=== PATIENT | male | born 1935 | race African-American/Black ===

== ENCOUNTER 2016-09-15 21:32 | Inpatient (IN) | payer OTHER ==
--- NOTE | ~2016-09-15 | DS ---
Discharge Summary [facility] [address] [place]. [address] NAME: JEFF ALVAREZ : 33 STATUS : DIS IN PAT#: [id number] AGE: 81 ADM/REG DATE : 09/16/16 MR#: [id number] REPORT SERV DATE: 09/24/16 DICTATED BY: ALDO RENDON DATE: 09/23/16 REPORT STATUS : Draft TRANSCRIBED BY: LYNNETTE DATE: 09/23/16 ADMISSION DATE: 09/16/2016 DISCHARGE DATE: 09/23/2016 Please see yesterday's full discharge summary. The patient was not able to go on the because it took time for insurance to approve his home IV antibiotic and home healthcare to be arranged. PICC line has been placed in his right upper extremity. He is still on a cefepime. Home care for the cefepime is now set up as 1 g IV every six hours through 09/29/2016 with a PICC line to be removed the following day on 09/30/2016. He is to follow up with Dr. Guillen and his office staff and to get a PET-CT, also Dr. Paez of Medical Oncology who wants to see the patient on Tuesday or of the week following discharge and also to follow up with Radiation Oncology in the week prior to discharge. The patient is still alert, oriented, and ambulatory. States he is feeling remarkably well. He is in good spirits. We will add one discharge diagnosis and that is moderate protein-calorie malnutrition, present on admission. I spent 32 minutes today with the patient and with discharge planning. DICTATED BY: Alisia Baumann/LYNNETTE Aldo Rendon M.D. / [id number] CC: Alisia Hopkins DAVID K Edward Arrowsmith, M.D. Donald Hetzel, M.D. Nathan Mull IV, M.D.
--- NOTE | ~2016-09-15 | HP ---
History And Physical [address] [place]. [address] NAME: JEFF ALVAREZ : 33 STATUS : ADM IN PAT#: [id number] AGE: 81 ADM/REG DATE : 09/16/16 MR#: [id number] REPORT SERV DATE: 09/16/16 DICTATED BY: RUIZ GRIMES DATE: 09/16/16 REPORT STATUS : Draft TRANSCRIBED BY: MODKeegan DATE: 09/16/16 DATE OF ADMISSION: 09/16/2016 CHIEF COMPLAINT: An 81-year-old male, presenting with increasing shortness of breath and evidence of partial left lung collapse and possible pneumonia versus lung mass. HISTORY OF PRESENT ILLNESS: The patient's history was obtained through careful interview with the patient and daughter coupled with review of [facility] medical records. The patient states that for several days he has began to have increasing shortness of breath characterized by dyspnea on exertion, stating "my breathing has been impaired". For about three weeks he has had a cough that has been increasingly productive of a thick mucus. Finally today the patient was so short of breath that his daughter brought him to an urgent care clinic, when they found that his O2 saturation was quite low they sent him in an ambulance here to our hospital. No chest pain. No abdominal pain. No headache. No back pain. No nausea or vomiting. The patient has had a very poor appetite recently. He has lost weight going from 184 pounds to 170 pounds, but about a month ago he had been suffering from some diarrhea and had a colonoscopy under the care of Dr. Barraza and had a new diagnosis of ulcerative colitis, but he has been started on mesalamine with resolution of his diarrhea and feeling better. REVIEW OF SYSTEMS: Otherwise, a 14-point review of systems was obtained, was negative. PAST MEDICAL HISTORY: 1. Ulcerative colitis just diagnosed in July 2016, under the care of Dr. Barraza. 2. Colon polyps. 3. Chronic back pain. 4. Gastroesophageal reflux disorder. 5. Benign prostatic hypertrophy. 6. Bacteroides bacteremia in November 2013. PAST SURGICAL HISTORY: 1. Cholecystectomy. 2. Hernia repair. ALLERGIES: TO PENICILLIN. SOCIAL HISTORY: Quit smoking about three years ago. No alcohol abuse. Became a in 2000, now lives with his daughter. 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 History And Physical [place] [address] [place]. [address] NAME: JEFF ALVAREZ : 33 STATUS : ADM IN PAT#: [id number] AGE: 81 ADM/REG DATE : 09/16/16 MR#: [id number] REPORT SERV DATE: 09/16/16 DICTATED BY: RUIZ GRIMES DATE: 09/16/16 REPORT STATUS : Draft TRANSCRIBED BY: LYNNETTE DATE: 09/16/16 FAMILY HISTORY: Brother with diabetes, last year. Father at a young age in a motor vehicle accident. Mother of "old age." CURRENT MEDICATIONS: 1. Entocort 9 mg p.o. daily. 2. BuSpar three times a day. 3. Dulcolax daily. 4. Pepcid 20 mg p.o. daily. 5. Lasix 20 mg daily. 6. Hydrocodone. 7. Claritin 10 mg p.o. daily. 8. Mesalamine 1.2 g p.o. t.i.d. 9. Prilosec 20 mg p.o. daily. 10.Simethicone. 11.Flomax 0.4 mg p.o. daily. PHYSICAL EXAMINATION: VITAL SIGNS: Temperature 99.3, pulse 103, blood pressure 110/60, respiratory rate 22, and O2 saturation 82% on room air, 90% on 3 L nasal cannula. GENERAL: An ill-appearing male, in evidence of distress secondary to shortness of breath and cough. HEENT: Pupils equal, round, and reactive to light. No conjunctival pallor. No scleral icterus. Nares are patent. Oropharynx is clear of obstruction. Moist mucous membranes. NECK: Trachea midline. No thyromegaly. LYMPH: No cervical lymphadenopathy. No supraclavicular lymphadenopathy. RESPIRATORY: The patient has almost absent breath sounds in the left lung throughout, the right lung showed scattered expiratory wheezes and some scattered rhonchi as well. No rales. Throughout the left lung I do not appreciate any particular egophony though. The patient has a labored respiratory effort. CARDIOVASCULAR: Tachycardic. Regular rhythm. No murmurs, rubs, or gallops. No current extremity edema is appreciated. ABDOMEN: Soft, nontender, and nondistended. Normal bowel sounds auscultated throughout. No hepatosplenomegaly. DERMATOLOGICAL: Warm and dry extremities. No pallor. No cyanosis. PSYCHIATRIC: Normal affect. Good mood. Alert and oriented x3. LABORATORY DATA: White blood cell count 10.6, hemoglobin 14, hematocrit 41, and platelets 272. Sodium 135, potassium 3.4, chloride 94, bicarb 35, BUN 16, creatinine 1.12, and glucose 98. Brain natriuretic peptide 8. Troponin negative. INR 1.4. STUDIES: 1. Chest x-ray by my own evaluation shows shift of the lungs and the mediastinum toward the left side where the patient has what appears to be a total collapse of the left lung. History And Physical [address] [place]. [address] NAME: JEFF ALVAREZ : 33 STATUS : ADM IN [facility]#: [id number] AGE: 81 ADM/REG DATE : 09/16/16 MR#: [id number] REPORT SERV DATE: 09/16/16 DICTATED BY: RUIZ GRIMES DATE: 09/16/16 REPORT STATUS : Draft TRANSCRIBED BY: LYNNETTE DATE: 09/16/[address] of the chest shows diffuse pneumonia likely left lung mass with mucous plugging and left upper lung collapse, also was noted to be a thoracic aortic aneurysm 4.4 cm. ASSESSMENT AND PLAN: 1. Hypoxic respiratory failure. Provide supportive care. 2. Left lung collapse. Consult Dr. Arteaga, Pulmonary, for bronchoscopy. 3. Left lung mass. 4. Suspected postobstructive pneumonia. Check blood cultures. Place on empiric IV antibiotics. 5. Chronic obstructive pulmonary disease exacerbation. Place on IV Solu-Medrol, Duo nebulizers. 6. Ulcerative colitis, seems to be under good control on mesalamine. KPL/MODL Ruiz Grimes M.D. / [id number] CC: MD Ajit Rodriguez M.D.
--- NOTE | ~2016-09-15 | CN ---
Consultation Report [facility] [address] [place]. [address] NAME: JEFF BRASHER : 33 STATUS : ADM IN PAT#: [id number] AGE: 81 ADM/REG DATE : 09/16/16 MR#: [id number] REPORT SERV DATE: 09/16/16 DICTATED BY: MERY GUILLEN IV DATE: 09/16/16 REPORT STATUS : Draft TRANSCRIBED BY: LYNNETTE DATE: 09/16/16 PULMONARY CONSULTATION DATE OF CONSULTATION: 09/16/2016 REASON FOR REQUEST: Abnormal chest CT scan. HISTORY OF PRESENT ILLNESS: History was obtained from the records and from the patient. Mr. Brasher is an 81-year-old male with a history of recently diagnosed ulcerative colitis, GERD, past tobacco, and past Bacteroides sepsis secondary to cholangitis, who was admitted with cough with sputum production, shortness of breath, and an abnormal chest CT scan. The patient was in his normal state of health from a respiratory standpoint until several weeks ago when he developed a dry, nonproductive cough. Over the last three to four days, he has noted increased shortness of breath with wheezing and a cough productive of grayish phlegm. He denied any fevers, chills, sweats, or hemoptysis. He has limited exercise tolerance at baseline secondary to sciatica more than shortness of breath. He has not previously been on bronchodilator medication nor is he on supplemental oxygen. He denies new headaches, focal neurologic deficits, or bone pain. Because of his worsening symptoms, he was brought to the emergency room where a chest x-ray demonstrated hazy density throughout the left hemithorax with a nodular density at the right base with a CT scan confirming left upper lobe collapse with infiltrate in the left lower lobe, airway narrowing, and nodular densities in the right lung field with bronchiectasis. The patient has no recent radiographic studies for comparison. PULMONARY HISTORY: Remarkable for no history of childhood asthma or known adult obstructive lung disease. He has had pneumonia in the past. He is a 40-xnbi-udlg smoker, having quit in 2013. 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 He refuses immunizations. PAST MEDICAL HISTORY: Remarkable for, 1. Ulcerative colitis. 2. Reflux disease. 3. Past tobacco use. 4. Previous bacteremia from cholangitis. SURGERIES: The patient had a cholecystectomy and had a right inguinal hernia repair. ALLERGIES: HE DEVELOPS A RASH FROM PENICILLIN. CURRENT MEDICATIONS: The patient is on Claritin 10 mg daily, DuoNeb every four hours, Entocort EC 9 mg daily, Flomax 0.4 mg after breakfast, Levaquin 750 mg daily, Flagyl 500 mg q.8 hours, Lasix 20 mg daily, Lialda 1.2 g with meals, Protonix 40 mg daily, and Solu-Medrol 20 mg q.12 hours. SOCIAL HISTORY: Remarkable for the tobacco use as above. The patient denies alcohol or Consultation Report [place] [id number] [facility] [place]. [address] NAME: JEFF BRASHER : 33 STATUS : ADM IN [facility]#: [id number] AGE: 81 ADM/REG DATE : 09/16/16 MR#: [id number] REPORT SERV DATE: 09/16/16 DICTATED BY: MERY GUILLEN IV DATE: 09/16/16 REPORT STATUS : Draft TRANSCRIBED BY: LYNNETTE DATE: 09/16/16 illicit drug use. He is . He has seven children. He lives with his daughter. FAMILY HISTORY: Remarkable for brother with diabetes mellitus. Father of a motor vehicle accident. Mother who of an old age. There are no other known medical problems in family members. REVIEW OF SYSTEMS: 14-systems were reviewed and pertinent positives as noted above. PHYSICAL EXAMINATION: GENERAL: This is a well-developed, male, in no acute distress. He is alert, awake, and oriented. VITAL SIGNS: Temperature 97.6, pulse is 80, respiratory rate is 18, saturations are 96% on 4 L via nasal cannula, and blood pressure is 124/62. HEENT: Normocephalic, atraumatic. Extraocular movements are intact. Pupils are reactive to light. Sclerae and conjunctivae are normal. He has a nasal cannula in place. He has upper plate and partial lower with two remnant teeth with significant gingival disease. NECK: Without any palpable lymphadenopathy or thyromegaly. CHEST: The patient has some inspiratory crackles and rhonchi at the right base. He has wheeze throughout the left hemithorax with a prolonged expiratory phase and decreased breath sounds. CARDIOVASCULAR: Jugular venous pulsations appear to be approximately 7 cm. He has 2+ carotid upstrokes with no obvious bruit. He has a regular S1 and S2 with no clear murmur or S3. Peripheral pulses are diminished. ABDOMEN: Scaphoid, soft, nontender. There are hypoactive bowel sounds. There is no palpable hepatosplenomegaly or mass. Surgical scar is noted. EXTREMITIES: Demonstrate some ankle edema. Pneumatic compression stockings are in place. There is no cyanosis, clubbing, or palpable cords. NEUROLOGIC: The patient is able to move all extremities. Strength is 5/5 and sensation is intact to light touch. IMAGING: Chest CT scan is as noted above with right lower lobe bronchiectatic changes with several nodular densities that are unclear if they are inflammatory or malignant. There is a slightly prominent 4R, though an enlarged 4L lymph node. There is some aneurysmal dilatation of the ascending thoracic aorta. The main stem pulmonary artery is enlarged. There is volume loss and airway narrowing to the left upper lobe as well as to the left lower lobe with a small left pleural effusion. There is nodular infiltrate in the remnant left lower lobe, more consistent with an inflammatory process and lymphangitic tumor spread. LABORATORY DATE: CBC: Hemoglobin 11.5, hematocrit 35.1, platelet count was 203,000, white blood cell count is 8.5, INR is 1.6. Sodium is 135, potassium 3.1, chloride 97, bicarb 31, BUN 14, creatinine 0.96, glucose of 98, albumin is only 1.8, globulin was elevated at 4.8. Liver panel is otherwise unremarkable. TSH is 1.18. Troponin is less than 0.02. Procalcitonin level was 0.16. Consultation Report [address] [place]. [address] NAME: JEFF BRASHER : 33 STATUS : ADM IN [facility]#: [id number] AGE: 81 ADM/REG DATE : 09/16/16 MR#: [id number] REPORT SERV DATE: 09/16/16 DICTATED BY: MEYR GUILLEN IV DATE: 09/16/16 REPORT STATUS : Draft TRANSCRIBED BY: LYNNETTE DATE: 09/16/16 ASSESSMENT AND PLAN: 1. Respiratory. The patient has a wheezing, which may be from airway narrowing or obstructive lung disease. Solu-Medrol will be increased to 40 mg q.12 hours, Dulera will be started two puffs twice a day, Spiriva one capsule daily, DuoNeb will be discontinued and he will be given albuterol with EzPAP q.4 hours while awake and q.2 hours as needed. The patient has bronchiectasis in the right lower lobe. He will be given an Acapella valve. Oxygen will be titrated to maintain saturations in the 90% to 94% range. Nodules may be inflammatory or malignant and will need to be followed as part of the evaluation. 2. Infectious disease. With the bronchiectasis, we will change to cefepime and Flagyl. Sputum will be sent for Gram stain and culture. Urine antigen will be sent for Legionella as well as for Pneumococcus. The patient refuses immunizations. 3. Cardiovascular. The patient has large pulmonary arteries, so we will check an echocardiogram for pulmonary pressures particularly at the time of considering doing transbronchial lung biopsies to the left lower lobe. 4. Hematologic. Lovenox subcu for deep vein thrombosis prophylaxis and vitamin K for the elevated INR, which will be repeated tomorrow. 5. Renal. We will replace the patient's potassium and magnesium. Phosphate level will be obtained and replete electrolytes in the morning. 6. Gastrointestinal. Head of bed at 30 to 45 degrees. We will continue ulcerative colitis medications. Thank you for consulting us. The patient will undergo bronchoscopy tomorrow. MARCELA/LYNNETTE Mery Guillen IV, M.D. / [id number] CC: MD Ajit Rodriguez M.D.
--- NOTE | ~2016-09-15 | IDS ---
Interim Discharge Summary [facility] [address] [place]. [address] NAME: JEFF BRASHER : 33 STATUS : ADM IN PAT#: [id number] AGE: 81 ADM/REG DATE : 09/16/16 MR#: [id number] REPORT SERV DATE: 09/21/16 DICTATED BY: HARINI NERI DATE: 09/21/16 REPORT STATUS : Draft TRANSCRIBED BY: LYNNETTE DATE: 09/21/16 ADMISSION DATE: 09/16/2016 DISCHARGE DATE: DATE OF INTERIM SUMMARY: 09/20/2016. INTERIM DIAGNOSES: 1. Acute hypoxic respiratory failure, present on arrival. 2. Left lung collapse, present on arrival. 3. Bronchiectasis. 4. Chronic obstructive pulmonary disease mild exacerbation, present on arrival. 5. Systemic inflammatory response syndrome. 6. Hypoalbuminemia. 7. Mild creatinine elevation. CONSULTATIONS: Dr. Guillen. PROCEDURES PERFORMED: Bronchoscopy path still currently pending. Cultures pending. The patient additionally had PET scan approximately one week with close followup with Pulmonology at discharge, ambulating trial currently room air at rest and exercise 90 to 95 on room air. HOSPITAL COURSE: Please see H and P for complete details. HISTORY OF PRESENT ILLNESS: Briefly, Mr. Brasher is an 81-year-old male with past medical history of COPD and tobacco use currently on smokeless tobacco, who presents after having progressive shortness of breath, dyspnea on exertion and found to have left lung collapse, prompting pulmonary evaluation and subsequent bronchoscopy. The bronchoscopy was quite extensive from detailed notes postoperatively with cultures obtained. The patient has been placed on cefepime, Flagyl, and steroid taper due to COPD. IV antibiotics to continue minimum 7 days. Currently, the patient is on day 5 of 7 at the time of this interim summary; however, the patient should be able to be discharged once culture and sensitivities have been known per Dr. Guillen's request on Pulmonary. Medications have been continued to be optimized. The patient has been able to be weaned off oxygen, ambulatory, speaking full sentences with increased exercise tolerance. The patient again will need followup with path and cultures. We will determine dispo potential including sensitivities will likely be followed up as an outpatient if no return prior to discharge. The patient's SIRS symptoms have notably improved. Creatinine elevation has remained fairly stable. All questions answered with the patient at bedside. Case was discussed with Pulmonary team. KATHERINE/LYNNETTE Interim Discharge Summary [address] [place]. [address] NAME: JEFF BRASHER : 33 STATUS : ADM IN PAT#: [id number] AGE: 81 ADM/REG DATE : 09/16/16 MR#: [id number] REPORT SERV DATE: 09/21/16 DICTATED BY: HARINI NERI DATE: 09/21/16 REPORT STATUS : Draft TRANSCRIBED BY: LYNNETTE DATE: 09/21/16 Harini Neri MD / [id number] CC: MD Ajit Rodriguez M.D.
--- NOTE | ~2016-09-15 | DS ---
Discharge Summary [facility] [address] [facility] [place]. [address] NAME: JEFF ALVAREZ : 33 STATUS : ADM IN PAT#: [id number] AGE: 81 ADM/REG DATE : 09/16/16 MR#: [id number] REPORT SERV DATE: 09/23/16 DICTATED BY: ALDO RENDON DATE: 09/22/16 REPORT STATUS : Draft TRANSCRIBED BY: MODKeegan DATE: 09/22/16 ADMISSION DATE: 09/16/2016 DISCHARGE DATE: 09/22/2016 CONSULTANTS: Jaison Guillen, Pulmonary Critical Care; Dr. Pablo Paez, Hematology/Oncology. DISCHARGE DIAGNOSES: 1. Newly diagnosed carcinosarcoma, poorly differentiated, left upper lobe lung. 2. Pseudomonas aeruginosa, postobstructive pneumonia. 3. Chronic obstructive pulmonary disease. 4. Recently diagnosed ulcerative colitis. 5. Status post acute kidney injury, transient, resolved. 6. Status post systemic inflammatory response syndrome. 7. History of sciatica. 8. Thoracic aortic aneurysm, 4.4 cm. HISTORY: This patient presented to [facility] emergency [facility]. He had been having progressive shortness of breath, dyspnea on exertion, cough for three weeks with productive sputum, went to an Urgent Care. He reportedly had a low O2 saturation, was sent to our emergency room. He was found to have atelectasis that was quite severe of his left upper lung. Also thoracic aortic aneurysm of 4.4 cm fusiform. The patient was referred to our inpatient team. He was seen by Pulmonary, Dr. Guillen. Dr. Guillen performed bronchoscopy on the patient, found a tumor plug extending from the anterior superior portion of the left upper lobe with complete obstruction of the left upper lobe bronchus with lizz pus draining. There was successful removal of the majority of the tumor plug. Cultures were submitted as well as cytology. The cytology showed the carcinosarcoma. The cultures revealed Pseudomonas aeruginosa that was moderately resistant in that it was only sensitive to cefepime, aztreonam, Zosyn, and amikacin. The patient received intravenous cefepime seven days worth here in the hospital and will complete seven more days after discharge. After therapy, the patient had significant improvement of his aeration of his left upper lung. His cough, shortness of breath, and chest discomfort resolved. CT scan of abdomen and pelvis, looking for evidence of metastasis showed irregular nodular opacity in the basilar right lower lobe, 1.6 x 1.2 mm. No other adenopathy or metastatic disease. There was some enlargement of the prostate gland. MRI of the brain revealed evidence of chronic appearing sphenoid sinusitis, otherwise, no acute abnormalities. He was seen by Dr. Paez, who planned to see him after full staging was completed. Dr. Guillen of Pulmonary plans to see the patient back with a PET-CAT scan. He wants the patient to see Yudelka Weir at his office 10/01/2016 with spirometry and DLCO. The patient is ambulatory, states he is not short of breath. His O2 saturations are normal on room air. He is afebrile. He feels good. His recent ulcerative colitis is well Discharge Summary [address] [address] NAME: JEFF ALVAREZ : 33 STATUS : ADM IN [facility]#: [id number] AGE: 81 ADM/REG DATE : 09/16/16 MR#: [id number] REPORT SERV DATE: 09/23/16 DICTATED BY: ALDO RENDON DATE: 09/22/16 REPORT STATUS : Draft TRANSCRIBED BY: LYNNETTE DATE: 09/22/16 controlled by his oral medicines. No diarrhea. No abdominal pain. DISCHARGE MEDICATIONS: Budesonide 9 mg p.o. daily, Maxipime 1 g IV q.6 hours through 09/29/2016, Lasix 20 mg daily, Claritin 10 mg daily, mesalamine 1.2 g t.i.d., Prilosec 20 mg daily, Flomax 0.4 mg daily, Tylenol 650 q.6 hours p.r.n. pain, BuSpar 7.5 mg t.i.d. scheduled, Colace 100 mg daily p.r.n., [place] 10/325 half tablet daily p.r.n. pain which is a chronic medicine for him, nicotine patch 14 mg size with encouragement to stop all tobacco, simethicone gas tablets p.r.n., albuterol nebulized q.4 hours p.r.n. shortness of breath, and Anoro Ellipta one puff daily, and albuterol HFA two puffs q.4 hours p.r.n. shortness of breath. He is to follow up with Dr. Guillen and his office staff as described above, also with Dr. Paez of Oncology and also with his PCP, Dr. Ajit Richards, and his GI, if needed, Dr. Barraza, in the future. If his medical insurance will not pay for home IV antibiotics with his PICC line and home nursing, then we will have set up for rehab to do that same thing. I spent 58 minutes today with the patient and with discharge plan. DICTATED BY: Alisia Baumann/LYNNETTE Aldo Rendon M.D. / [id number] CC: Alisia Hopkins M.D. Edward Arrowsmith, M.D. Donald Hetzel, M.D. Nathan Mull IV, M.D.
--- NOTE | ~2016-09-15 | OP ---
Record Of Operation [facility] [address] [place]. [address] NAME: JEFF ALVAREZ : 31 STATUS : ADM IN PAT#: [id number] AGE: 81 ADM/REG DATE : 09/16/16 MR#: [id number] REPORT SERV DATE: 09/17/16 DICTATED BY: MERY GUILLEN IV DATE: 09/17/16 REPORT STATUS : Draft TRANSCRIBED BY: LYNNETTE DATE: 09/17/16 DATE OF PROCEDURE: 09/17/2016 PREOPERATIVE DIAGNOSIS: Suspected tumor plug in the left upper lobe. POSTOPERATIVE DIAGNOSES: Tumor plug likely extending from the spur and from anterior segment of the left upper lobe with complete obstruction of the left upper lobe bronchus with tumor plug overlying and obstructing the left lower lobe bronchus with lizz pus. There was successful removal of the majority of the tumor plug exposing all airways except for the anterior segment of the left upper lobe. PROCEDURE: Bronchoscopy with the use of Caprice catheter for assist with exposure, cautery snare as well as cutting snares, biopsy forceps, and APC for cautery. EBUS was performed with sampling of the 4 L and 11 L lymph nodes. BALs were additionally performed in both the right lower lobe, left lower lobe, and wash of the left upper lobe was sent for cytology. CONTRAINDICATIONS: None. CONSENT: The risks, benefits, alternative of the treatments and evaluations were discussed with the patient and his . Possible complications were reviewed to include, but not limited to, bleeding, infection, low oxygen level, air leak around the lung, and even potentially . The patient agreed to procedure with the consent signed and witnessed on the front of the chart. PREOPERATIVE LABS: INR was 1.4 and platelet count was 217,000. METHOD: The patient was taken to the bronchoscopy suite of [facility] and prepared in the usual manner. Anesthesiology was consulted to provide airway management as well as sedation. This was provided via an LMA airway. Once the airway was secured and the patient was sedated, the bronchoscope was advanced through the LMA without difficulty. The vocal cords seemed to move appropriately with respiratory effort. Trachea was sharp and the vikash was narrowed. On the right, there were milky thick secretions in the airways particularly in the right lower lobe that were grossly removed with suction for examination. Of note, a total of 18 mL of 2% lidocaine solution was used throughout the procedure to anesthetize the vocal cords as well as the airways. The airways are slightly ectatic with some bronchial pits. There was the milky somewhat purulent looking secretions on the right which were removed with suction. There was anatomic variant of the apical segment coming off the anterior segment of the right upper lobe. Otherwise anatomy was normal with all airways patent out beyond the fourth generation bronchi. On the left, there was a necrotic tumor plug completely obstructing the distal left mainstem bronchus though the scope could be passed around the tumor plug into the left lower lobe bronchus. This had lizz pus in the airways. A BAL was performed in the left lower lobe and sent for cultures as well as cytology. A BAL was then performed in the right lower lobe bronchus sent for cytology as well as for cultures. At this point, electrocautery snare was used to remove the vast majority of the tissue plug which was then removed with suction. This opened up the superior segment and left lower lobe bronchi. At this time, Caprice catheter was inserted Record Of [address] [address] NAME: JEFF ALVAREZ : 31 STATUS : ADM IN PAT#: [id number] AGE: 81 ADM/REG DATE : 09/16/16 MR#: [id number] REPORT SERV DATE: 09/17/16 DICTATED BY: MERY GUILLEN IV DATE: 09/17/16 REPORT STATUS : Draft TRANSCRIBED BY: LYNNETTE DATE: 09/17/16 around the tissue plug, which actually allowed access to the lingula initially with a large tumor plug again dropping out of the remnant of the left upper lobe airway. Thus used a cutting snare to remove several more large pieces of tissue. Multiple biopsies were also sent for cytology. There was lizz pus in the lingula when that was exposed. We continued to use the snare to remove pieces of tissue as well as a GI Jumbo forceps to remove large chunks of tissue. When there was significant bleeding, the epinephrine solution would be used with a total use of 30 mL by the conclusion of procedure. I was assisted for part of this by Dr. Saul Arteaga. We were able then successfully with cutting snare to remove the remnant tumor to expose the apical and posterior segments of the left upper lobe with only the anterior segment not visualized which is at the base of the tumor stock. At this time, a PC was used to cauterize the base of the tissue to stop bleeding with good results. At the conclusion, there was only the anterior segment of the left upper lobe was not open and the purulent material had been removed from the noted airways on the left upper lobe and the left lower lobe. At this time, the bronchoscope was removed and the EBUS was advanced down the right mainstem with visualization of a 5 mm node with soft tissue areas, however, without any clear jae material in the level 7 region. A 4L lymph node was found and was sampled four times; two for cell block and two for slide. On each sampling, the needle was advanced 25 to 30 times. There was scant jae tissue noted without malignant cells. The bronchoscope was then advanced down the left lower lobe bronchus with visualization of a 4L lymph node. This was sampled four times; two for slide and two for cell block. This demonstrated lymphoid tissue without malignant cells. It was felt that adequate sampling had been obtained. There was some bloody material which was removed with bronchoscope after the EBUS scope was removed. This was removed with suction. At the conclusion, there was no active bleeding with only the anterior segment left upper lobe not patent. It was felt that no further procedure would be helpful for the patient and the procedure was stopped. LMA was removed in the bronchoscopy suite and he will be recovered. The patient otherwise tolerated the procedure quite well. As noted, estimated blood loss was approximately 40 mL. NM/MODL Mery Guillen IV, M.D. / [id number] CC: MD Ajit Rodriguez M.D.
--- NOTE | ~2016-09-15 | CN ---
Consultation Report [facility] [address] [place]. 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 HISTORY OF PRESENT ILLNESS: Mr. Brasher is an 81-year-old gentleman who presented with dyspnea. CT scan, which I personally reviewed, showed left upper lobe collapse with a proximal tumor. He has undergone bronchoscopy with biopsy showing a carcinosarcoma. CT scan of the abdomen and MR brain are both planned. He is breathing better at this point he says. He has ulcerative colitis that is well controlled, chronic back pain that is well controlled and GERD and BPH, both of which are controlled. REVIEW OF SYSTEMS: Positive for dyspnea, cough, dizziness, and sinus drainage. The remainder of a 14-point review of systems was negative. PAST MEDICAL HISTORY: Ulcerative colitis, colon polyps, back pain, GERD, and BPH. PAST SURGICAL HISTORY: Cholecystectomy, hernia repair. ALLERGY: To penicillin. SOCIAL HISTORY: Quit smoking three years ago after smoking for approximately 50-pack years. He is a and lives with his daughter. 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 FAMILY HISTORY: Negative for lung cancer. PHYSICAL EXAMINATION: GENERAL: Reveals a well-developed gentleman, in no acute distress. VITAL SIGNS: 98.3, 129/79, 66, 16. HEENT: The eye exam shows that the lids and conjunctivae are without lesions. The pupils are equal, round, and reactive. Mouth, the lips and gums show no abnormalities. The oropharynx is without thrush or stomatitis. NECK: Supple. There is no thyromegaly or mass. The trachea is midline. SKIN: Without rashes, nodules, or ecchymoses. CARDIOVASCULAR: Reveals regular rate and rhythm without murmur. There is no lower extremity edema. LUNGS: Clear to auscultation bilaterally with normal respiratory effort. ABDOMEN: Soft. There is no hepatosplenomegaly or mass. PSYCHIATRIC: Shows normal insight and judgment with appropriate mood and affect. NEUROLOGIC: Shows cranial nerves to be grossly intact. DATA REVIEW: I personally reviewed the CT scan. I reviewed all of his laboratory studies. Consultation Report [facility] [address] [place]. 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 The plan will be to complete his staging. With the bulbar collapse, he would likely benefit from radiation either palliative or definitive. We will need to see how he does as an outpatient in terms of performance status. I will follow along daily with you and then follow him as an outpatient. KIMBERLY/LYNNETTE Pablo Keenan M.D. / [id number] CC: Alisia Hopkins DAVID K Nathan Mull IV, M.D.
[2016-09-15 21:13] LABS: BASOPHILS 0.1 %; BASOPHILS ABSOLUTE 0.01 10/3/uL (0.0-0.16); EOSINOPHILS 0.6 %; EOSINOPHILS ABSOLUTE 0.06 10/3/uL (0.0-0.53); ER CBC TAT 0 Hrs 08 Mins; HEMOGLOBIN 13.6 g/dL (13.6-17.8); IMMATURE GRANULOCYTES 0.2 %; IMMATURE GRANULOCYTES ABSOLUTE 0.02 10/3/uL (0.0-0.11); LYMPHOCYTES 17.6 %; LYMPHOCYTES ABSOLUTE 1.87 10/3/uL (0.67-4.30); MANUAL DIFF NO %; MEAN CORPUS HGB CONC 33.2 g/dL (32.0-36.0); MEAN CORPUSCULAR HEMOGLOB 31.2 pg (26.0-34.0); MEAN PLATELET VOLUME 9.4 fL (9.2-13.0); MONOCYTES 7.2 %; MONOCYTES ABSOLUTE 0.76 10/3/uL (0.21-1.20); NEUTROPHILS 74.3 %; PLATELET COUNT 272 10/3/uL (150-400); RBC DISTRIBUTION WIDTH 13.5 % (12.0-16.0); RED CELL COUNT 4.36 10/6/uL (4.7-6.1); WHITE BLOOD CELLS 10.6 10/3/uL (4.5-10.5)
[2016-09-15 21:29] LABS: BUN (BLOOD UREA NITROGEN) 16 MG/DL (6-23); CALCIUM, SERUM 8.8 MG/DL (8.5-10.4); CHEST PAIN PROFILE TAT 0 Hrs 24 Mins; CHLORIDE, SERUM 94 MMOL/L (96-112); CO2 (CARBON DIOXIDE) 35 MMOL/L (24-34); CREATININE 1.12 MG/DL (0.70-1.30); GFR AFRICAN AMERICAN 70 ML/MIN (>=60); GFR NON AFRICAN AMERICAN 60 ML/MIN (>=60); GLUCOSE, SERUM 98 MG/DL (60-99); POTASSIUM, SERUM 3.4 MMOL/L (3.5-5.3); SODIUM, SERUM 135 MMOL/L (135-148); TROPONIN I <0.02 NG/ML (<0.05)
[~2016-09-15 21:32] MED LIST: CIP5 PO; FLOMAX4 PO; L20 PO; NORCO1 TA2 PO; PRILO PO; [UNRECOGNIZED DRUG - CODE] PO
[2016-09-15 21:47] LABS: INTERNATIONAL NORMAL RATI 1.4 UNITS (-); PROTIME (NOT ORD) 16.9 SEC (12.0-14.5)
[2016-09-15 21:48] LABS: PARTIAL THROMBO TIME 42.3 SEC (22.5-37.2)
[2016-09-15] MEDS ORDERED: ENTOCORT3 PO (22:31)
[2016-09-15] MEDS ORDERED: LIALDA1.2 GM PO (22:32)
[2016-09-15] MEDS ORDERED: FLOMAX4 PO (22:32)
[2016-09-15] MEDS ORDERED: NORCO1 TAB PO (22:33)
[2016-09-15] MEDS ORDERED: CLARIT10 PO (22:34)
[2016-09-15] MEDS ORDERED: BUSPIRONE7.5 MG PO (22:34)
[2016-09-15] MEDS ORDERED: MYTAB GAS80 MG PO (22:35)
[2016-09-15] MEDS ORDERED: L20 PO (22:35)
[2016-09-15] MEDS ORDERED: PRILO PO (22:35)
[2016-09-15] MEDS ORDERED: DULCOLAX STOOL100 MG PO (22:35)
[2016-09-15] MEDS ORDERED: PEP20 PO (22:36)
[2016-09-16 06:46] LABS: BASOPHILS 0.1 %; BASOPHILS ABSOLUTE 0.01 10/3/uL (0.0-0.16); EOSINOPHILS 0.5 %; EOSINOPHILS ABSOLUTE 0.04 10/3/uL (0.0-0.53); HEMOGLOBIN 11.5 g/dL (13.6-17.8); IMMATURE GRANULOCYTES 0.2 %; IMMATURE GRANULOCYTES ABSOLUTE 0.02 10/3/uL (0.0-0.11); LYMPHOCYTES 11.8 %; LYMPHOCYTES ABSOLUTE 1.01 10/3/uL (0.67-4.30); MEAN CORPUS HGB CONC 32.8 g/dL (32.0-36.0); MEAN CORPUSCULAR HEMOGLOB 30.7 pg (26.0-34.0); MEAN CORPUSCULAR VOLUME 93.9 fL (80-100); MEAN PLATELET VOLUME 8.9 fL (9.2-13.0); MONOCYTES ABSOLUTE 0.68 10/3/uL (0.21-1.20); NEUTROPHILS 79.4 %; NEUTROPHILS ABSOLUTE 6.77 10/3/uL (2.02-8.40); PLATELET COUNT 203 10/3/uL (150-400); RBC DISTRIBUTION WIDTH 13.4 % (12.0-16.0); RED CELL COUNT 3.74 10/6/uL (4.7-6.1); WHITE BLOOD CELLS 8.5 10/3/uL (4.5-10.5)
[2016-09-16 06:47] LABS: HEMATOCRIT 35.1 % (40.0-51.0); MANUAL DIFF NO %
[2016-09-16 06:53] LABS: INTERNATIONAL NORMAL RATI 1.6 UNITS (-); PROTIME (NOT ORD) 18.6 SEC (12.0-14.5)
[2016-09-16 07:12] LABS: BUN (BLOOD UREA NITROGEN) 14 MG/DL (6-23); CALCIUM, SERUM 8.4 MG/DL (8.5-10.4); CHLORIDE, SERUM 97 MMOL/L (96-112); CO2 (CARBON DIOXIDE) 33 MMOL/L (24-34); CREATININE 0.96 MG/DL (0.70-1.30); GFR AFRICAN AMERICAN 84 ML/MIN (>=60); GFR NON AFRICAN AMERICAN 73 ML/MIN (>=60); GLUCOSE, SERUM 98 MG/DL (60-99); POTASSIUM, SERUM 3.1 MMOL/L (3.5-5.3); SGOT(AST) 17 U/L (5-40); SGPT(ALT) 17 U/L (5-65); SODIUM, SERUM 135 MMOL/L (135-148); TOTAL BILIRUBIN 0.8 MG/DL (0-1.2); TOTAL PROTEIN 6.6 G/DL (6.0-8.5); TROPONIN I <0.02 NG/ML (<0.05)
[2016-09-16 07:13] LABS: A/G RATIO 0.4 (0.7-1.9); ALBUMIN 1.8 G/DL (3.5-5.0); ALKALINE PHOSPHATASE 77 U/L (45-117); GLOBULIN 4.8 G/DL (2.5-4.1)
[2016-09-16 08:32] LABS: PROCALCITONIN 0.16 ng/mL (<0.5)
[2016-09-16 11:00] LABS: PHOSPHORUS, SERUM 2.6 MG/DL (2.5-4.5)
[2016-09-17 05:20] LABS: BASOPHILS 0 %; EOSINOPHILS 0 %; HEMATOCRIT 35.1 % (40.0-51.0); HEMOGLOBIN 11.4 g/dL (13.6-17.8); IMMATURE GRANULOCYTES 0.3 %; IMMATURE GRANULOCYTES ABSOLUTE 0.02 10/3/uL (0.0-0.11); LYMPHOCYTES 9.2 %; LYMPHOCYTES ABSOLUTE 0.71 10/3/uL (0.67-4.30); MEAN CORPUS HGB CONC 32.5 g/dL (32.0-36.0); MEAN CORPUSCULAR HEMOGLOB 30.6 pg (26.0-34.0); MEAN CORPUSCULAR VOLUME 94.4 fL (80-100); MEAN PLATELET VOLUME 9.3 fL (9.2-13.0); MONOCYTES 2.7 %; MONOCYTES ABSOLUTE 0.21 10/3/uL (0.21-1.20); NEUTROPHILS 87.8 %; NEUTROPHILS ABSOLUTE 6.78 10/3/uL (2.02-8.40); PLATELET COUNT 217 10/3/uL (150-400); RBC DISTRIBUTION WIDTH 13.3 % (12.0-16.0); RED CELL COUNT 3.72 10/6/uL (4.7-6.1); WHITE BLOOD CELLS 7.7 10/3/uL (4.5-10.5)
[2016-09-17 05:27] LABS: MANUAL DIFF NO %
[2016-09-17 05:30] LABS: INTERNATIONAL NORMAL RATI 1.4 UNITS (-); PROTIME (NOT ORD) 17.3 SEC (12.0-14.5)
[2016-09-17 05:36] LABS: ALBUMIN 1.8 G/DL (3.5-5.0); CALCIUM, SERUM 8.9 MG/DL (8.5-10.4); CHLORIDE, SERUM 102 MMOL/L (96-112); CO2 (CARBON DIOXIDE) 33 MMOL/L (24-34); CREATININE 0.96 MG/DL (0.70-1.30); GFR AFRICAN AMERICAN 84 ML/MIN (>=60); GFR NON AFRICAN AMERICAN 73 ML/MIN (>=60); SODIUM, SERUM 139 MMOL/L (135-148)
[2016-09-17 05:37] LABS: BUN (BLOOD UREA NITROGEN) 18 MG/DL (6-23); GLUCOSE, SERUM 153 MG/DL (60-99); PHOSPHORUS, SERUM 1.8 MG/DL (2.5-4.5); POTASSIUM, SERUM 5.1 MMOL/L (3.5-5.3)
[2016-09-18 05:46] LABS: BASOPHILS 0 %; EOSINOPHILS 0 %; HEMATOCRIT 33.9 % (40.0-51.0); HEMOGLOBIN 10.9 g/dL (13.6-17.8); IMMATURE GRANULOCYTES 0.3 %; IMMATURE GRANULOCYTES ABSOLUTE 0.04 10/3/uL (0.0-0.11); LYMPHOCYTES 4.9 %; LYMPHOCYTES ABSOLUTE 0.62 10/3/uL (0.67-4.30); MEAN CORPUS HGB CONC 32.2 g/dL (32.0-36.0); MEAN CORPUSCULAR HEMOGLOB 30.4 pg (26.0-34.0); MEAN CORPUSCULAR VOLUME 94.7 fL (80-100); MEAN PLATELET VOLUME 9.1 fL (9.2-13.0); MONOCYTES ABSOLUTE 0.51 10/3/uL (0.21-1.20); NEUTROPHILS 90.8 %; NEUTROPHILS ABSOLUTE 11.56 10/3/uL (2.02-8.40); PLATELET COUNT 208 10/3/uL (150-400); RBC DISTRIBUTION WIDTH 13.4 % (12.0-16.0); RED CELL COUNT 3.58 10/6/uL (4.7-6.1)
[2016-09-18 05:49] LABS: MANUAL DIFF NO %; WHITE BLOOD CELLS 12.7 10/3/uL (4.5-10.5)
[2016-09-18 05:56] LABS: ALBUMIN 1.8 G/DL (3.5-5.0); CHLORIDE, SERUM 99 MMOL/L (96-112); CO2 (CARBON DIOXIDE) 31 MMOL/L (24-34); CREATININE 1.31 MG/DL (0.70-1.30); GFR AFRICAN AMERICAN 58 ML/MIN (>=60); GFR NON AFRICAN AMERICAN 50 ML/MIN (>=60); GLUCOSE, SERUM 153 MG/DL (60-99); POTASSIUM, SERUM 4.4 MMOL/L (3.5-5.3); SODIUM, SERUM 136 MMOL/L (135-148)
[2016-09-18 05:57] LABS: BUN (BLOOD UREA NITROGEN) 23 MG/DL (6-23); CALCIUM, SERUM 7.9 MG/DL (8.5-10.4)
[2016-09-18 05:58] LABS: PHOSPHORUS, SERUM 2.9 MG/DL (2.5-4.5)
[2016-09-19 05:41] LABS: BASOPHILS 0 %; EOSINOPHILS 0 %; HEMATOCRIT 34.2 % (40.0-51.0); IMMATURE GRANULOCYTES 0.4 %; IMMATURE GRANULOCYTES ABSOLUTE 0.03 10/3/uL (0.0-0.11); LYMPHOCYTES 9.3 %; LYMPHOCYTES ABSOLUTE 0.79 10/3/uL (0.67-4.30); MANUAL DIFF NO %; MEAN CORPUS HGB CONC 32.2 g/dL (32.0-36.0); MEAN CORPUSCULAR HEMOGLOB 30.6 pg (26.0-34.0); MEAN PLATELET VOLUME 8.9 fL (9.2-13.0); MONOCYTES 7.2 %; MONOCYTES ABSOLUTE 0.61 10/3/uL (0.21-1.20); NEUTROPHILS 83.1 %; PLATELET COUNT 201 10/3/uL (150-400); RBC DISTRIBUTION WIDTH 13.8 % (12.0-16.0); WHITE BLOOD CELLS 8.5 10/3/uL (4.5-10.5)
[2016-09-19 05:49] LABS: A/G RATIO 0.4 (0.7-1.9); ALBUMIN 1.8 G/DL (3.5-5.0); ALKALINE PHOSPHATASE 73 U/L (45-117); BUN (BLOOD UREA NITROGEN) 23 MG/DL (6-23); CALCIUM, SERUM 8.4 MG/DL (8.5-10.4); CHLORIDE, SERUM 103 MMOL/L (96-112); CO2 (CARBON DIOXIDE) 34 MMOL/L (24-34); CREATININE 1.09 MG/DL (0.70-1.30); GFR AFRICAN AMERICAN 72 ML/MIN (>=60); GFR NON AFRICAN AMERICAN 62 ML/MIN (>=60); GLOBULIN 4.3 G/DL (2.5-4.1); POTASSIUM, SERUM 4.3 MMOL/L (3.5-5.3); SGOT(AST) 17 U/L (5-40); SGPT(ALT) 15 U/L (5-65); SODIUM, SERUM 140 MMOL/L (135-148); TOTAL PROTEIN 6.1 G/DL (6.0-8.5)
[2016-09-19 05:52] LABS: GLUCOSE, SERUM 108 MG/DL (60-99); TOTAL BILIRUBIN 0.3 MG/DL (0-1.2)
[2016-09-19 06:23] LABS: PROCALCITONIN 0.06 ng/mL (<0.5)
[2016-09-20 04:38] LABS: ALBUMIN 1.8 G/DL (3.5-5.0); BUN (BLOOD UREA NITROGEN) 21 MG/DL (6-23); CALCIUM, SERUM 8.4 MG/DL (8.5-10.4); CHLORIDE, SERUM 100 MMOL/L (96-112); CO2 (CARBON DIOXIDE) 34 MMOL/L (24-34); CREATININE 1.24 MG/DL (0.70-1.30); GFR AFRICAN AMERICAN 62 ML/MIN (>=60); GFR NON AFRICAN AMERICAN 53 ML/MIN (>=60); GLUCOSE, SERUM 137 MG/DL (60-99); PHOSPHORUS, SERUM 1.6 MG/DL (2.5-4.5); POTASSIUM, SERUM 3.7 MMOL/L (3.5-5.3); SODIUM, SERUM 138 MMOL/L (135-148)
[2016-09-21 06:12] LABS: BUN (BLOOD UREA NITROGEN) 16 MG/DL (6-23); CALCIUM, SERUM 8.6 MG/DL (8.5-10.4); CHLORIDE, SERUM 103 MMOL/L (96-112); CO2 (CARBON DIOXIDE) 33 MMOL/L (24-34); CREATININE 0.97 MG/DL (0.70-1.30); GFR AFRICAN AMERICAN 83 ML/MIN (>=60); GFR NON AFRICAN AMERICAN 72 ML/MIN (>=60); GLUCOSE, SERUM 85 MG/DL (60-99); POTASSIUM, SERUM 3.6 MMOL/L (3.5-5.3); SODIUM, SERUM 142 MMOL/L (135-148)
[2016-09-21 06:43] LABS: BASOPHILS 0.1 %; EOSINOPHILS 0.1 %; HEMATOCRIT 35.8 % (40.0-51.0); HEMOGLOBIN 11.5 g/dL (13.6-17.8); LYMPHOCYTES 15.9 %; MEAN CORPUS HGB CONC 32.2 g/dL (32.0-36.0); MEAN CORPUSCULAR HEMOGLOB 30.1 pg (26.0-34.0); MEAN CORPUSCULAR VOLUME 93.3 fL (80-100); MEAN PLATELET VOLUME 7.2 fL (6.8-10.8); MONOCYTES 6.8 %; MONOCYTES ABSOLUTE 0.4 10/3/uL (0.2-1.2); NEUTROPHILS 77.1 %; NEUTROPHILS ABSOLUTE 4.8 10/3/uL (2.0-8.4); PLATELET COUNT 194 10/3/uL (150-400); RBC DISTRIBUTION WIDTH 14.4 % (12.0-16.0); RED CELL COUNT 3.84 10/6/uL (4.7-6.1); WHITE BLOOD CELLS 6.2 10/3/uL (4.5-10.5)
[2016-09-21 06:44] LABS: MANUAL DIFF NO %
[2016-09-23] MEDS ORDERED: T PO (17:15)
[2016-09-23] MEDS ORDERED: MAX1 IV (17:17)
[2016-09-23] MEDS ORDERED: ANOROELLIPTA INH (17:19)
[2016-09-23] MEDS ORDERED: MELATONIN1 M1 PO (17:22)
[2016-09-23] MEDS ORDERED: HABIT14 TOP (17:26)
== END 2016-09-23 18:24 | disposition home health service (06) | DRG 166 ==
LOC: ER 21:32 → 2SO 09-16 01:05
PROVIDERS: Emergency Medicine; Hospitalist; Internal Medicine Critical Care Medicine; Student in an Organized Health Care Education/Training Program
PROC: 0B9F8ZX Drainage of Right Lower Lung Lobe, Via Natural or Artificial Opening Endoscopic, Diagnostic (ICD-10-PCS; principal; 2016-09-17 13:37)
PROC: 07B74ZX Excision of Thorax Lymphatic, Percutaneous Endoscopic Approach, Diagnostic (ICD-10-PCS; 2016-09-17 13:37)
PROC: 0B9J8ZX Drainage of Left Lower Lung Lobe, Via Natural or Artificial Opening Endoscopic, Diagnostic (ICD-10-PCS; 2016-09-17 13:37)
PROC: 0BBG8ZZ Excision of Left Upper Lung Lobe, Via Natural or Artificial Opening Endoscopic (ICD-10-PCS; 2016-09-17 13:37)
PROC: 02HV33Z Insertion of Infusion Device into Superior Vena Cava, Percutaneous Approach (ICD-10-PCS; 2016-09-22)
PROC: 4A02X4A Measurement of Cardiac Electrical Activity, Guidance, External Approach (ICD-10-PCS; 2016-09-22)
DX: C34.12 Malignant neoplasm of upper lobe, left bronchus or lung (principal); J96.01 Acute respiratory failure with hypoxia; J15.1 Pneumonia due to Pseudomonas; N17.9 Acute kidney failure, unspecified; E44.0 Moderate protein-calorie malnutrition; K51.00 Ulcerative (chronic) pancolitis without complications; J44.0 Chronic obstructive pulmonary disease with (acute) lower respiratory infection; I71.2 Thoracic aortic aneurysm, without rupture; J44.1 Chronic obstructive pulmonary disease with (acute) exacerbation; J98.11 Atelectasis; J47.9 Bronchiectasis, uncomplicated; E83.42 Hypomagnesemia; K21.9 Gastro-esophageal reflux disease without esophagitis; E87.6 Hypokalemia; M54.30 Sciatica, unspecified side; J32.3 Chronic sphenoidal sinusitis; E88.09 Other disorders of plasma-protein metabolism, not elsewhere classified; F17.220 Nicotine dependence, chewing tobacco, uncomplicated; Z68.23 Body mass index [BMI] 23.0-23.9, adult; Z88.0 Allergy status to penicillin; Z83.3 Family history of diabetes mellitus; Z98.890 Other specified postprocedural states
CPT/HCPCS: 36569; 70552; 71010; 71020; 71250; 74177; 80048; 80053; 80069; 82962; 83036; 83605; 83735; 83880; 84100; 84132; 84145; 84443; 84484; 85025; 85610; 85730; 87015; 87040; 87070; 87077; 87102; 87116; 87186; 87205; 87449; 88112; 88172; 88173; 88305; 88333; 88334; 88341; 88342; 93005; 93306; 94640; 94667; 94668; 99285; A9270-GY; A9577; C1725; C1751; C1757; J0692; J1956; J2405; J2920; J3010; J3475; Q9967